=== PATIENT | male | born 1960 | race Caucasian/White ===

== ENCOUNTER 2020-12-09 00:51 | Emergency (ER) | payer BC ==
[~2020-12-09] VITALS: Ht 180.3 cm; Wt 81.2 kg
[2020-12-09 01:33] LABS: ABSOLUTE NEUTROPHILS 4.6 thou/uL (1.4-8.2); EOSINOPHILS 3.9 % (0.0-3.0); HEMATOCRIT 43.4 % (42.0-52.0); HEMOGLOBIN 14.4 gm/dL (14.0-18.0); LYMPHOCYTES 45.6 % (24.0-44.0); MCH 30.7 pg (26.0-34.0); MCHC 33.1 g/dL (28.0-37.0); MCV 92.6 fL (80.0-100.0); MONOCYTES 8.2 % (1.0-8.0); PLATELET COUNT 350 thou/uL (150-400); POLYS 41.3 % (36.0-66.0); RBC 4.69 mil/uL (4.50-6.00); RDW 13.8 % (10.5-14.5); WBC 11.2 thou/uL (4.0-11.0)
[2020-12-09 01:37] LABS: ANION GAP 11 mmol/L (7-16); BUN 13 mg/dL (7-18); CALCIUM 8.7 mg/dL (8.5-10.1); CHLORIDE 102 mmol/L (98-107); CO2 25 mmol/L (21-32); CREATININE 0.9 mg/dL (0.7-1.3); GLUCOSE 118 mg/dL (74-106); POTASSIUM 3.6 mmol/L (3.5-5.1); SODIUM 138 mmol/L (136-145)
[2020-12-09 01:47] LABS: ALBUMIN 3.9 g/dL (3.4-5.0); SGOT 15 U/L (15-37); SGPT 22 U/L (16-63); TOTAL BILIRUBIN 0.2 mg/dL (0.2-1.0); TOTAL PROTEIN 7.4 g/dL (6.4-8.2); TROPONIN-I <0.06 ng/mL (<0.06)
[2020-12-09 04:55] VITALS: BP 124/74
--- NOTE | 2020-12-10 12:02 | EKG ---
[address] [address] ELECTROCARDIOGRAM REPORT Name: NATALIEJEWELTIFFANIE MATTHEWS Room #: [facility]P [facility] [id number] Admission: 12/09/20 Attend Phys: Discharge: 12/09/20 Date of : 60 Report #: [id number] [facility] ED Test Date: 2020-12-09 Test Time: 00:53:28 Pat Name: JEWEL ESTRADA Department: Room: Gender: Home Health Care Coordinator: : 1960 Requested By: Al Avalos Order Number: [id number] MD: Tate Chavez Measurements Intervals [place] Rate: 84 P: 45 AK: 163 QRS: 8 QRSD: 97 T: 20 QT: 384 QTc: 454 Interpretive Statements Sinus rhythm No previous ECG available for comparison Electronically Signed On 12-10-2020 12:02:05 RESOLUTION MANAGER by Tate Chavez [email or web address] <ELECTRONICALLY SIGNED> By: Tate Chavez MD 12/10/20 1202 0053 0053 Tate Chavez MD /EPI
== END 2020-12-09 04:56 | disposition short-term general hospital (02) ==
LOC: ER 00:51
PROVIDERS: Emergency Medicine
DX: R07.89 Other chest pain (principal); F17.210 Nicotine dependence, cigarettes, uncomplicated